=== PATIENT | male | born 2005 | race Hispanic/Latino ===

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

== ENCOUNTER → 2023-06-19 | Emergency (ER) | payer BC, OTHER ==
[2023-06-19 08:52] LABS: SARS-CoV-2 Antigen Rapid Res Negative (Negative)
--- NOTE | 2023-06-19 09:52 | ER ---
Nurse's Notes [facility] Name: Amber Figueroa Age: 17 yrs Sex: Male : 2005 Arrival Date: 06/19/2023 Time: 07:48 Bed 13 Private MD: Diagnosis: Acute sinusitis, unspecified;Acute pharyngitis, unspecified Presentation: 06/18 07:42 Chief complaint: Patient states: sore throat, chills, slight cough, and body aches aa5 since this morning. Pt states "I started yesterday with a runny nose". 07:42 Onset of symptoms was June 19, 2023. aa5 07:42 Acuity: JOSE 4 aa5 07:42 Method Of Arrival: Ambulatory aa5 07:42 Coronavirus screen: chills, sore throat. Ebola Screen: Patient denies travel to an aa5 Ebola-affected area in the 21 days before illness onset. Initial Sepsis Screen: Does the patient meet any 2 criteria? No. Patient's initial sepsis screen is negative. Does the patient have a suspected source of infection? No. Patient's initial sepsis screen is negative. Risk Assessment: Do you want to hurt yourself or someone else? Patient reports no desire to harm self or others. Triage Assessment: 09:17 Headache History: Denies prior headaches. General: Appears in no apparent distress. ph Behavior is calm, cooperative. 09:17 Pain: Complains of pain in right ear and right cheek Pain Quality of pain is described ph as pressure, Also complains of cold like symptoms and sinus congestion. Historical: - Allergies: 07:59 Zithromax; aa5 - Home Meds: 07:59 None [Active]; aa5 - PMHx: 07:59 None; aa5 - PSHx: 07:59 None; aa5 - Immunization history:: Adult Immunizations unknown. - Social history:: Smoking status: Patient denies any tobacco usage or history of. - Family history:: not pertinent. - Hospitalizations: : No recent hospitalization is reported. Screenin:16 [facility] ED Fall Risk Assessment (Adult) History of falling in the last 3 months, ph including since admission No falls in past 3 months (0 pts) Confusion or Disorientation No (0 pts) Intoxicated or Sedated No (0 pts) Impaired Gait No (0 pts) Mobility Assist Device Used No (0 pt) Altered Elimination No (0 pt) Score/Fall Risk Level 0 - 2 = Low Risk Oriented to surroundings, Maintained a safe environment, Assessed \\T\\ reinforced patient's understanding of fall precautions, Provided non-skid footwear. Abuse screen: Denies threats or abuse. Denies injuries from another. Nutritional screening: No deficits noted. Tuberculosis screening: No symptoms or risk factors identified. Assessment: 08:30 General: Appears in no apparent distress. uncomfortable, well groomed, Behavior is ph calm, cooperative, appropriate for age, Reports chills for. Pain: Complains of pain in right cheek and right ear. Neuro: Level of Consciousness is awake, alert, obeys commands, Oriented to person, place, time, situation. Cardiovascular: Capillary refill < 3 seconds in bilateral fingers Patient's skin is warm and dry. GI: No signs and/or symptoms were reported involving the gastrointestinal system. EENT: Reports nasal congestion pain in right cheek and right ear when swallowing. Derm: Skin is pink, warm \\T\\ dry. Vital Signs: 07:42 BP 133 / 86; Pulse 62; Resp 18 S; Temp 98.2(O); Pulse Ox 100% on R/A; Weight 103.42 kg aa5 (M); Height 5 ft. 11 in. (R); 07:42 Body Mass Index 31.80 (103.42 kg, 180.34 cm) - Percentile 96.7 % aa5 ED Course: 07:42 Arm band placed on Patient placed in an exam room, on a stretcher. aa5 07:51 Patient arrived in ED. ra3 07:53 Urbano Morelos MD is Attending Physician. rn 07:53 Yeimi Rollins, JODY is Primary Nurse. ph 07:59 Triage completed. aa5 08:45 COVID swab sent to lab. Flu and/or RSV swab sent to lab. Strep swab sent to lab. ph 09:16 Patient has correct armband on for positive identification. Bed in low position. Call ph light in reach. Side rails up X2. Pulse ox on. NIBP on. Door closed. Noise minimized. PO fluids given. 09:16 No provider procedures requiring assistance completed. Patient did not have IV access ph during this emergency room visit. Administered Medications: No medications were administered Medication: 09:16 VIS not applicable for this client. ph Outcome: :51 Discharge ordered by . rn 10:32 Patient left the ED. ph Signatures: Urbano Morelos MD MD rn Calderon, Audri RN RN aa5 Yeimi Rollins RN RN ph Lurdes, Cassia [email or web address]
--- NOTE | 2023-06-19 09:52 | EDPHYS ---
Physician Documentation [facility] Name: Amber Figueroa Age: 17 yrs Sex: Male : 2005 Arrival Date: 06/19/2023 Time: 07:48 Bed 13 Private MD: ED Physician Urbano Morelos HPI: 06/18 08:08 This 17 yrs old Male presents to ER via Ambulatory with complaints of Sinus rn Pain, body aches,chills. 08:08 The patient or guardian reports flu symptoms, low-grade fever, myalgias. rn 08:08 Onset: The symptoms/episode began/occurred this morning. Severity of symptoms: At their rn worst the symptoms were mild, in the emergency department the symptoms are unchanged. Modifying factors: The symptoms are alleviated by nothing, the symptoms are aggravated by nothing. Associated signs and symptoms: Pertinent positives: rhinorrhea, sore throat, Pertinent negatives: chest pain, diarrhea, vomiting. The patient has not experienced similar symptoms in the past. The patient has not recently seen a physician. Patient reports runny nose and sinus pressure that began this morning. Associated with chills and myalgias. No shortness of breath.. Historical: - Allergies: 07:59 Zithromax; aa5 - Home Meds: 07:59 None [Active]; aa5 - PMHx: 07:59 None; aa5 - PSHx: 07:59 None; aa5 - Immunization history:: Adult Immunizations unknown. - Social history:: Smoking status: Patient denies any tobacco usage or history of. - Family history:: not pertinent. - Hospitalizations: : No recent hospitalization is reported. ROS: 08:08 Constitutional: Positive for subjective fever and chills Eyes: Negative for injury, rn pain, redness, and discharge, ENT: Positive for sore throat and runny nose, positive for right ear pain Neck: Negative for injury, pain, and swelling, Cardiovascular: Negative for chest pain, palpitations, and edema, Respiratory: Positive for cough, negative for shortness of breath Abdomen/GI: Negative for abdominal pain, nausea, vomiting, diarrhea, and constipation, MS/Extremity: Negative for injury and deformity, Skin: Negative for injury, rash, and discoloration, Neuro: Negative for headache, weakness, numbness, tingling, and seizure, Exam: 08:08 Constitutional: This is a well developed, well nourished patient who is awake, alert, rn and in no acute distress. Head/Face: Normocephalic, atraumatic. ENT: Mild pharyngeal erythema, no stridor, normal right-sided tympanic membrane. No perforation or foreign body. Neck: Trachea midline, no masses palpated, and no cervical lymphadenopathy. Supple, full range of motion without nuchal rigidity, or vertebral point tenderness. No Meningismus. Cardiovascular: Regular rate and rhythm. No pulse deficits. Respiratory: No increased work of breathing, no retractions or nasal flaring. Abdomen/GI: Soft, non-tender MS/ Extremity: Pulses equal, no cyanosis. Neuro: Awake and alert, GCS 15 Vital Signs: 07:42 BP 133 / 86; Pulse 62; Resp 18 S; Temp 98.2(O); Pulse Ox 100% on R/A; Weight 103.42 kg aa5 (M); Height 5 ft. 11 in. (R); 07:42 Body Mass Index 31.80 (103.42 kg, 180.34 cm) - Percentile 96.7 % aa5 MDM: 07:53 Patient medically screened. rn 09:51 Differential Diagnosis: Bronchitis Influenza Upper Respiratory Infection Sinusitis rn Pharyngitis Viral Syndrome. Data reviewed: vital signs, nurses notes, lab test result(s), and as a result, I will discharge patient. Counseling: I had a detailed discussion with the patient and/or guardian regarding the historical points, exam findings, and any diagnostic results supporting the discharge/admit diagnosis, lab results, the need for outpatient follow up, to return to the emergency department if symptoms worsen or persist or if there are any questions or concerns that arise at home. Special discussion: I discussed with the patient/guardian in detail that at this point there is no indication for admission to the hospital. It is understood, however, that if the symptoms persist or worsen the patient needs to return immediately for re-evaluation. 06/18 08:05 Order name: Strep rn 06/18 08:05 Order name: Flu; Complete Time: 09:51 rn 06/18 08:05 Order name: SARS RAPID; Complete Time: 09:51 rn 06/18 08:54 Order name: Throat Culture EDMS Administered Medications: No medications were administered Disposition Summary: 06/19/23 09:51 Discharge Ordered Notes: Location: Home rn Problem: new rn Symptoms: have improved rn Condition: Stable rn Diagnosis - Acute sinusitis, unspecified rn - Acute pharyngitis, unspecified rn Followup: rn - With: Private Physician - When: As needed - Reason: Recheck today's complaints, Re-evaluation by your physician Discharge Instructions: - Discharge Summary Sheet rn - Pharyngitis rn - Sinusitis, Adult rn Forms: - Medication Reconciliation Form rn - Thank You Letter rn - Antibiotic furniture shampooer - Prescription Opioid Use rn - Patient Portal Instructions rn - Leadership Thank You Letter rn - Work release form aa5 Prescriptions: - Augmentin 875-125 mg Oral Tablet - take 1 tablet ORAL route every 12 hours for 10 days; 20 tablet; Refills: 0, rn Product Selection Permitted Signatures: Dispatcher [employer] Urbano Norris MD MD rn Calderon, Audri, RN RN aa5
== END ==
LOC: ER 07:48
DX: J01.90 Acute sinusitis, unspecified (principal); J02.9 Acute pharyngitis, unspecified; Z11.52 Encounter for screening for COVID-19; Z88.1 Allergy status to other antibiotic agents
CPT/HCPCS: 36415; 87070; 87081; 87804; 87811; 99283